=== PATIENT | female | born 2005 | race Caucasian/White ===

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

== ENCOUNTER 2024-05-18 20:37 | Emergency (ER) | payer OTHER ==
[2024-05-18 20:44] VITALS: BP 109/75; PULSE 71; RESP 18; TEMP 98.2; BMI 19.7
== END 2024-05-18 21:39 | disposition home or self-care (01) ==
LOC: JERFT 20:37
DX: H57.89 Other specified disorders of eye and adnexa (principal); T45.0X5A Adverse effect of antiallergic and antiemetic drugs, initial encounter
CPT/HCPCS: 99283-25